=== PATIENT | male | born 1985 | race Caucasian/White ===

== ENCOUNTER 2019-08-19 02:36 | Emergency (ER) | payer BC, OTHER ==
[2019-08-19 03:48] LABS: HIV (1/2) Antibody/Antigen Non-Reactive (NonReactive); HIV 1/2 INDEX 0.08 S/CO (<1.00); Hep C IgG Ab Non-Reactive (NonReactive); Hep C Index 0.16 S/CO (0-0.79)
[2019-08-19 04:10] LABS: HBSAB Concentration 350.22 mIU/mL; Hep B Surf AB Reactive (NonReactive)
== END 2019-08-19 03:05 | disposition home or self-care (01) ==
LOC: ERS 02:36
DX: Z77.21 Contact with and (suspected) exposure to potentially hazardous body fluids (principal)
CPT/HCPCS: 36415; 86706; 86803; 87389; 99283

== ENCOUNTER 2025-04-12 09:07 | Emergency (ER) | payer BC | END 2025-04-12 09:36 | LOC: ERS 09:07 | DX: Z53.21 Procedure and treatment not carried out due to patient leaving prior to being seen by health care provider (principal) ==